=== PATIENT | female | born 1975 | race Caucasian/White ===

== ENCOUNTER → 2017-09-25 | Outpatient (CLI) | payer OTHER, BC ==
--- NOTE | 2017-09-27 16:29 | RADIOLOGY REPORT (SQ) ---
EXAM DESCRIPTION: MRI LT LOWER EXTREMITY WITHOUT COMPLETED DATE/TIME: 09/25/2017 5:23 pm REASON FOR STUDY: M79.672 PAIN IN LEFT FOOT M79.672 PAIN IN LEFT FOOT COMPARISON: None. TECHNIQUE: T1-weighted, T2-weighted, and gradient echo noncontrast multiplanar imaging of the left f orefoot and toes LIMITATIONS: None. FINDINGS: MARROW SIGNAL: Along the plantar aspect of the 1st metatarsal head, subcortical edema is p resent involving an 8 mm diameter area, best shown on coronal series 4, image 16 and axial series 6, image 12. This involves the articular plantar surface between the grooves for the sesamoid bones. S esamoid bones have normal marrow signal, normal alignment at the 1st metatarsophalangeal joint, and n o gross chondromalacia. Normal flexor hallucis tendon. No 1st metatarsophalangeal joint effusion. JOINT EFFUSION: No significant effusions. PLANTAR FASCIA: Normal as visualized. TARSOMETATARSAL AND TOE ARTICULATIONS: Anatomic. Mild degenerative changes first metatarsal phalange al joint. INTERMETATARSAL SPACES AND PLANTAR PLATES: Intact. No soft tissue mass to suggest a neuroma. SOFT TISSUES: No masses. No fibrosis. OTHER: No other significant finding. IMPRESSION: Small focus of edema in the plantar surface of the 1st metatarsal head, between the andrew culations of the sesamoid bones. Findings likely represent over use. Normal marrow signal, articula r cartilage, and alignment of the sesamoid bones at the 1st metatarsophalangeal joint TECHNICAL DOCUMENTATION: JOB ID: [id number] [employer]- All Rights Reserved
== END ==
LOC: RAD 16:36
PROVIDERS: ATTEND Orthopaedic Surgery
DX: M79.672 Pain in left foot (principal)